=== PATIENT | male | born 1960 | race Caucasian/White ===

== ENCOUNTER → 2021-06-07 | Outpatient (CLI) | payer MEDICARE, OTHER | LOC: EXRD 12:50 | DX: Z11.1 Encounter for screening for respiratory tuberculosis (principal); L40.50 Arthropathic psoriasis, unspecified; Z79.899 Other long term (current) drug therapy; M19.071 Primary osteoarthritis, right ankle and foot | CPT/HCPCS: 71046; 73630 ==

== ENCOUNTER → 2021-08-20 | Outpatient (CLI) | payer MEDICARE, OTHER | LOC: EXRD 13:25 | DX: M25.511 Pain in right shoulder (principal) | CPT/HCPCS: 73030 ==